=== PATIENT | female | born 1970 | race Caucasian/White ===

== ENCOUNTER 2016-10-13 14:49 | Observation (INO) | payer BC ==
[~2016-10-13] VITALS: Ht 165.1 cm; Wt 80.7 kg
[2016-10-13 15:42] LABS: HEMOGLOBIN 13.7 gm/dl (12.3-15.3); RED BLOOD COUNT 4.48 M/UL (4.00-5.10); WHITE BLOOD COUNT 14.3 K/UL (4.5-11.0)
[2016-10-13 16:08] LABS: BUN/CREATININE RATIO 17 (0-10)
[2016-10-13] MEDS ORDERED: ZYRTEC10 MG PO (20:11)
[2016-10-14 05:51] LABS: HEMOGLOBIN 13.2 gm/dl (12.3-15.3); RED BLOOD COUNT 4.37 M/UL (4.00-5.10); WHITE BLOOD COUNT 17.5 K/UL (4.5-11.0)
[2016-10-14 06:11] LABS: BUN/CREATININE RATIO 17 (0-10)
[2016-10-14 13:27] LABS: HEMOGLOBIN 13.9 gm/dl (12.3-15.3); RED BLOOD COUNT 4.51 M/UL (4.00-5.10)
[2016-10-14 13:36] LABS: WHITE BLOOD COUNT 22.6 K/UL (4.5-11.0)
[2016-10-15 05:34] LABS: HEMOGLOBIN 12.4 gm/dl (12.3-15.3); RED BLOOD COUNT 4.13 M/UL (4.00-5.10)
[2016-10-15 05:35] LABS: WHITE BLOOD COUNT 12.3 K/UL (4.5-11.0)
[2016-10-15] MEDS ORDERED: TYLENOL 325MG325 MG PO (13:51)
[2016-10-15] MEDS ORDERED: NORCO 5-325 TA1 EACH PO (13:51)
[2016-10-15] MEDS ORDERED: BACTRIM DS TAB1 EACH PO (13:52)
[2016-10-15] MEDS ORDERED: PHENERGAN 25 MG25 M1 PO (13:53)
== END 2016-10-15 15:00 | disposition home or self-care (01) ==
LOC: ER1 14:49 → ZEROF 16:58 → M/S 16:58
PROVIDERS: Physician Assistant; ADMIT Surgery
PROC: 0DTJ4ZZ Resection of Appendix, Percutaneous Endoscopic Approach (ICD-10-PCS; principal; 2016-10-13 18:13)
DX: K35.3 Acute appendicitis with localized peritonitis (principal); Z88.0 Allergy status to penicillin; Z88.5 Allergy status to narcotic agent; Z90.49 Acquired absence of other specified parts of digestive tract; Z98.51 Tubal ligation status; Z98.890 Other specified postprocedural states
CPT/HCPCS: 36415; 80048; 80053; 81001; 82150; 83690; 85025; 85027; 96374; 96375; 96376; 99285; G0378; J1100; J1335; J1885; J2250; J2405; J2710; J3010; J7030; J7050; J7120; Q9962